=== PATIENT | male | born 1965 | race Caucasian/White ===

== ENCOUNTER → 2020-02-20 | Outpatient (CLI) | payer OTHER ==
[2020-02-20 16:30] LABS: HEMATOCRIT 49.8 % (42.0-52.0); HEMOGLOBIN 16.6 g/dL (13.5-18.0); MEAN CELL VOLUME 87 fl (78-100); MEAN CORPUSCULAR HEMOGLOBIN 29 pg (27-31); MEAN CORPUSCULAR HGB CONC 33 g/dL (33-37); MEAN PLATELET VOLUME 8.9 fl (7.4-10.4); MONO # 0.7 (0.20-0.80); NEU # 5.2 (1.40-6.50); PLATELET COUNT 347 K/mm3 (130-400); RED CELL DISTRIBUTION WIDTH 13.4 % (11.5-14.5); WHITE BLOOD COUNT 9.7 K/mm3 (4.8-10.8)
[2020-02-20 16:41] LABS: ALBUMIN 4.5 g/dL (3.5-5.0); POTASSIUM 4.1 mmol/L (3.5-5.1)
[2020-02-20 16:42] LABS: CALCIUM 9.7 mg/dL (8.3-10.5)
[2020-02-20 16:43] LABS: TOTAL PROTEIN 7.3 g/dL (6.4-8.3)
[2020-02-20 16:44] LABS: EOS # 0.8 (0.04-0.40)
[2020-02-20 16:45] LABS: TOTAL BILIRUBIN 0.5 mg/dL (0.2-1.2)
[2020-02-20 17:43] LABS: ERYTHROCYTE SEDIMENTATION RATE 2 mm/hr (0-20)
== END ==
LOC: RAD 10:21 → LAB 10:21
PROVIDERS: Family Medicine
DX: N28.1 Cyst of kidney, acquired (principal)

== ENCOUNTER → 2020-03-10 | Outpatient (CLI) | payer OTHER ==
[2020-03-10 11:57] LABS: URINE APPEARANCE CLEAR; URINE BILIRUBIN NEGATIVE (NEGATIVE); URINE BLOOD NEGATIVE (NEGATIVE); URINE COLOR YELLOW; URINE GLUCOSE NEGATIVE (NEGATIVE); URINE KETONE NEGATIVE (NEGATIVE); URINE LEUKOCYTE ESTERASE NEGATIVE (NEGATIVE); URINE NITRATE NEGATIVE (NEGATIVE); URINE PROTEIN(semi-quant) NEGATIVE (NEGATIVE); URINE UROBILINOGEN NORMAL (NORMAL); URINE WBC 0-1 /hpf (0-3)
== END ==
LOC: LAB 11:22
PROVIDERS: Nurse Practitioner
DX: N50.819 Testicular pain, unspecified (principal)

== ENCOUNTER → 2020-03-21 | Outpatient (CLI) | payer OTHER | LOC: RAD 15:02 | DX: N50.812 Left testicular pain (principal) ==

== ENCOUNTER → 2024-04-27 | Outpatient (CLI) | payer OTHER ==
[~2024-04-27] MED LIST: Iohexol 300 - 100 ML VIAL IV ONE
[2024-04-27 11:10] LABS: BASO # 0.07 K/mm3 (0.02-0.10); EOS # 0.71 K/mm3 (0.04-0.40); EOS % 9.2 % (0.0-4.0); HEMATOCRIT 48.5 % (42.0-52.0); HEMOGLOBIN 16.2 g/dL (13.5-18.0); LYMPH# 2.25 K/mm3 (1.50-4.00); MEAN CELL VOLUME 90 fl (78-100); MEAN CORPUSCULAR HEMOGLOBIN 30 pg (27-31); MEAN CORPUSCULAR HGB CONC 33 g/dL (33-37); MEAN PLATELET VOLUME 8.5 fl (7.4-10.4); MONO # 0.54 K/mm3 (0.20-0.80); NEU # 4.16 K/mm3 (1.40-6.50); PLATELET COUNT 299 K/mm3 (130-400); RED CELL DISTRIBUTION WIDTH 12.4 % (11.5-14.5); WHITE BLOOD COUNT 7.7 K/mm3 (4.8-10.8)
[2024-04-27 11:19] LABS: ALBUMIN 4.5 g/dL (3.5-5.0)
[2024-04-27 11:20] LABS: CALCIUM 9.9 mg/dL (8.3-10.5)
[2024-04-27 11:22] LABS: TOTAL PROTEIN 7.3 g/dL (6.4-8.3)
[2024-04-27 11:23] LABS: TOTAL BILIRUBIN 0.6 mg/dL (0.2-1.2)
== END ==
LOC: LAB 10:48
PROVIDERS: Family Medicine
DX: K92.1 Melena (principal)
CPT/HCPCS: Q9967